=== PATIENT | female | born 1970 | race Caucasian/White ===

== ENCOUNTER 2020-11-04 10:16 | Outpatient (REF) | payer OTHER, SELFPAY ==
[2020-11-04 11:12] LABS: Alanine Aminotransferase 34 U/L (0-31); Anion Gap 12 (12-20); Blood Urea Nitrogen 10 mg/dL (9-16); Carbon Dioxide 26 mmol/L (22-29); Chloride 111 mmol/L (96-108); Cholesterol 183 mg/dL; Estimated Glomerular Filt Rate > 60; Glucose Fasting 89 mg/dL (60-99); HDL Cholesterol 73 mg/dL; LDL Cholesterol Calculated 93 mg/dl; Sodium 145 mmol/L (135-145); Triglycerides 87 mg/dL
== END 2020-11-04 10:17 | disposition home or self-care (01) ==
LOC: HO.LAB 10:16
PROVIDERS: PCP Family Medicine; Visit Provider Family Medicine
DX: E78.00 Pure hypercholesterolemia, unspecified (principal); I10 Essential (primary) hypertension
CPT/HCPCS: 80051; 80061; 82550; 82565; 82947; 84460; 84520

== ENCOUNTER 2021-02-06 06:45 | Outpatient (REF) | payer OTHER, SELFPAY ==
[2021-02-06 07:56] LABS: MANUAL DIFF FLAG NO
[2021-02-06 08:03] LABS: Basophils Absolute Auto 0.1 X10*3/uL (0.0-0.2); Basophils Percent Auto 0.9 % (0-2); Eosinophils Absolute Auto 0.2 X10*3/uL (0.0-0.4); Eosinophils Percent Auto 2.4 % (0-4); Hematocrit 37.3 % (37-47); Hemoglobin 12.2 g/dl (12.0-16.0); Imm Gran Abs Auto 0.03 X10*3/uL (0.00-0.03); Imm Gran Pct Auto 0.4 % (0.0-0.4); Lymphocytes Absolute Auto 2.7 X10*3/uL (1.2-4.9); Lymphocytes Percent Auto 36.5 % (20-40); Mean Corpuscular HGB Conc 32.7 g/dl (31.0-35.0); Mean Corpuscular Volume 100.8 fL (80-98); Mean Platelet Volume 10.7 fL (9.4-12.3); Monocytes Absolute Auto 0.4 X10*3/uL (0.1-1.2); Monocytes Percent Auto 5.5 % (2-11); Neutrophils Percent Auto 54.3 % (45-73); Platelet Count 268 X10*3/uL (160-400); Red Cell Distribution Width 12.3 % (11.0-16.0); White Blood Count 7.4 X10*3/uL (4.8-10.8)
[2021-02-06 08:30] LABS: Glucose Urine UA NEG (NEG); Leukocyte Esterase Urine 1+ (NEG); Nitrite Urine POS (NEG); Specific Gravity - Urine 1.025 (1.005-1.025); UACC Culture Trigger YES; Urine Blood 1+ (NEG); Urine Ketones NEG (NEG); Urine Protein NEG (NEG-TRACE)
[2021-02-06 08:33] LABS: Appearance Urine HAZY; Color Urine YELLOW
[2021-02-06 08:48] LABS: Bacteria Urine 2+ /LPF; Calcium Oxalate Crystals Urine TRACE /LPF; Squamous Epithelial Cell Urine 2+ /LPF
== END 2021-02-06 06:46 | disposition home or self-care (01) ==
LOC: HO.LAB 06:45
PROVIDERS: PCP Family Medicine; Visit Provider Family Medicine
DX: R39.15 Urgency of urination (principal); R10.9 Unspecified abdominal pain; R74.8 Abnormal levels of other serum enzymes
CPT/HCPCS: 36415; 81001; 81003; 82550; 85025; 87086

== ENCOUNTER 2021-02-20 15:15 | Outpatient (REF) | payer OTHER, SELFPAY ==
--- NOTE | ~2021-02-20 | US_ITS ---
EXAMINATION: US RETROPERITONEAL COMPLETE (RENAL) CLINICAL INFORMATION: Frequency. Unable to completely empty bladder. COMPARISON: Ultrasound abdomen complete 11/21/2017. TECHNIQUE: Real-time imaging of the kidneys and bladder. FINDINGS: RIGHT KIDNEY: 12.1 x 4.7 x 5.5 cm (SAG x AP x TRV). The kidney is normal in size, contour, and echogenicity. Renal cortical thickness is normal. No calculi or focal parenchymal lesions. No hydronephrosis. LEFT KIDNEY: 11.5 x 5.0 x 4.1 cm (SAG x AP x TRV). The kidney is normal in size, contour, and echogenicity. Renal cortical thickness is normal. No calculi or focal parenchymal lesions. No hydronephrosis. BLADDER: Well distended and normal. Bilateral ureteral jets are demonstrated. Prevoid bladder volume is 207 mL. Postvoid bladder volume is 8 mL. US/US retroperitoneal comp IMPRESSION: Unremarkable examination.
== END 2021-02-20 15:16 | disposition home or self-care (01) ==
LOC: HO.US 15:15
PROVIDERS: Visit Provider Family Medicine
DX: R33.9 Retention of urine, unspecified (principal)
CPT/HCPCS: 76770

== ENCOUNTER 2021-02-22 16:29 | Outpatient (REF) | payer OTHER, SELFPAY ==
[2021-02-22 17:24] LABS: MANUAL DIFF FLAG NO
[2021-02-22 17:33] LABS: Basophils Absolute Auto 0.1 X10*3/uL (0.0-0.2); Basophils Percent Auto 1.1 % (0-2); Eosinophils Absolute Auto 0.2 X10*3/uL (0.0-0.4); Eosinophils Percent Auto 2.2 % (0-4); Hematocrit 36.9 % (37-47); Hemoglobin 12.3 g/dl (12.0-16.0); Imm Gran Abs Auto 0.02 X10*3/uL (0.00-0.03); Imm Gran Pct Auto 0.3 % (0.0-0.4); Lymphocytes Absolute Auto 2.6 X10*3/uL (1.2-4.9); Lymphocytes Percent Auto 34.9 % (20-40); Mean Corpuscular HGB Conc 33.3 g/dl (31.0-35.0); Mean Corpuscular Hemoglobin 33.3 pg (27.0-33.0); Mean Platelet Volume 10.9 fL (9.4-12.3); Monocytes Absolute Auto 0.5 X10*3/uL (0.1-1.2); Monocytes Percent Auto 6.2 % (2-11); Neutrophils Absolute Auto 4.1 X10*3/uL (2.0-8.3); Neutrophils Percent Auto 55.3 % (45-73); Platelet Count 286 X10*3/uL (160-400); Red Blood Count 3.69 X10*6/uL (4.20-5.50); Red Cell Distribution Width 12.3 % (11.0-16.0); White Blood Count 7.4 X10*3/uL (4.8-10.8)
[2021-02-22 18:03] LABS: Alanine Aminotransferase 29 U/L (0-31); Albumin Level 4.5 g/dL (3.5-5.0); Alkaline Phosphatase 94 U/L (39-117); Anion Gap 12 (12-20); Aspartate Amino Transferase 22 U/L (5-31); Bilirubin Total 0.4 mg/dL (0.0-1.0); Blood Urea Nitrogen 12 mg/dL (9-16); Calcium 8.8 mg/dL (8.4-10.2); Carbon Dioxide 26 mmol/L (22-29); Chloride 111 mmol/L (96-108); Estimated Glomerular Filt Rate > 60; Glucose Random 89 mg/dL (60-115); Potassium 4.1 mmol/L (3.3-5.1); Sodium 145 mmol/L (135-145); Total Protein 7.2 g/dL (6.5-8.0)
[2021-02-22 18:25] LABS: Free T4 (Free Thyroxine) 0.77 ng/dL (0.71-1.85); Thyroid Stimulating Hormone 2.22 uIU/mL (0.32-4.0)
== END 2021-02-22 16:30 | disposition home or self-care (01) ==
LOC: HO.LAB 16:29
PROVIDERS: PCP Family Medicine; Visit Provider Family Medicine
DX: R53.83 Other fatigue (principal); K21.9 Gastro-esophageal reflux disease without esophagitis; G62.9 Polyneuropathy, unspecified
CPT/HCPCS: 36415; 80053; 82550; 84439; 84443; 85025

== ENCOUNTER 2021-06-14 05:56 | Outpatient (REF) | payer OTHER, SELFPAY ==
[2021-06-14 09:20] LABS: Glucose 1 Hour PP 50gm Dose 90 mg/dL (60-140)
== END 2021-06-14 05:57 | disposition home or self-care (01) ==
LOC: HO.LAB 05:56
PROVIDERS: PCP Family Medicine; Visit Provider Family Medicine
DX: E16.2 Hypoglycemia, unspecified (principal)
CPT/HCPCS: 36415

== ENCOUNTER 2021-07-25 08:00 | Outpatient (REF) | payer OTHER, SELFPAY ==
[2021-07-25 08:42] LABS: MANUAL DIFF FLAG NO
[2021-07-25 08:47] LABS: Basophils Absolute Auto 0.1 X10*3/uL (0.0-0.2); Basophils Percent Auto 0.9 % (0-2); Eosinophils Absolute Auto 0.2 X10*3/uL (0.0-0.4); Eosinophils Percent Auto 2.6 % (0-4); Hematocrit 37.1 % (37-47); Hemoglobin 12.4 g/dl (12.0-16.0); Imm Gran Abs Auto 0.03 X10*3/uL (0.00-0.03); Imm Gran Pct Auto 0.4 % (0.0-0.4); Lymphocytes Absolute Auto 2.1 X10*3/uL (1.2-4.9); Lymphocytes Percent Auto 30.7 % (20-40); Mean Corpuscular HGB Conc 33.4 g/dl (31.0-35.0); Mean Corpuscular Hemoglobin 33.3 pg (27.0-33.0); Mean Corpuscular Volume 99.7 fL (80-98); Mean Platelet Volume 10.7 fL (9.4-12.3); Monocytes Absolute Auto 0.4 X10*3/uL (0.1-1.2); Monocytes Percent Auto 5.6 % (2-11); Neutrophils Absolute Auto 4.1 X10*3/uL (2.0-8.3); Neutrophils Percent Auto 59.8 % (45-73); Platelet Count 270 X10*3/uL (160-400); Red Blood Count 3.72 X10*6/uL (4.20-5.50); Red Cell Distribution Width 12.3 % (11.0-16.0); White Blood Count 6.9 X10*3/uL (4.8-10.8)
[2021-07-25 09:05] LABS: Alanine Aminotransferase 27 U/L (0-31); Albumin Level 4.4 g/dL (3.5-5.0); Alkaline Phosphatase 98 U/L (39-117); Anion Gap 11 (12-20); Aspartate Amino Transferase 21 U/L (5-31); Bilirubin Total 0.6 mg/dL (0.0-1.0); Blood Urea Nitrogen 9 mg/dL (9-16); Calcium 9.4 mg/dL (8.4-10.2); Carbon Dioxide 25 mmol/L (22-29); Chloride 112 mmol/L (96-108); Estimated Glomerular Filt Rate > 60; Glucose Random 94 mg/dL (60-115); Potassium 4.3 mmol/L (3.3-5.1); Sodium 144 mmol/L (135-145)
[2021-07-25 09:26] LABS: Thyroid Stimulating Hormone 2.49 uIU/mL (0.32-4.0)
[2021-07-25 10:19] LABS: Erythrocyte Sedimentation Rate 13 MM/HR (0-20)
[2021-07-26 09:41] LABS: Lyme Abs Screen <0.90 index
[2021-08-01 21:42] LABS: Anti Nuclear Antibody Screen NEGATIVE (NEGATIVE)
== END 2021-07-25 08:01 | disposition home or self-care (01) ==
LOC: HO.LAB 08:00
PROVIDERS: PCP Family Medicine; Visit Provider Family Medicine
DX: R53.83 Other fatigue (principal); R53.1 Weakness; R25.1 Tremor, unspecified
CPT/HCPCS: 36415; 80053; 82550; 84443; 85025; 85652; 86038; 86039; 86617; 86618

== ENCOUNTER 2022-08-01 08:25 | Outpatient (REF) | payer OTHER, SELFPAY ==
[2022-08-01 09:05] LABS: Estimated Average Glucose 94 mg/dL; Hemoglobin A1c % 4.9 %
[2022-08-01 09:41] LABS: Glucose Fasting 100 mg/dL (60-99)
== END 2022-08-01 08:26 | disposition home or self-care (01) ==
LOC: HO.LAB 08:25
PROVIDERS: PCP Family Medicine; Visit Provider Family Medicine
DX: Z83.3 Family history of diabetes mellitus (principal)
CPT/HCPCS: 36415; 82947; 83036

== ENCOUNTER 2025-05-30 11:17 | Outpatient (AMB) | payer OTHER, SELFPAY ==
--- NOTE | 2025-05-30 11:20 | A.OFFPC_ITS ---
Vital Signs 05/30/25 11:39 05/30/25 11:45 Height 5 ft 7.72 in Weight 219 lb 6 oz BMI 33.6 BP 136/104 H 128/86 Blood Pressure Location Rt brachial Rt brachial Position Sitting Sitting Respiration 14 Pulse 91 Pulse Source Pulse Oximeter Temp 98.7 F Temp Source Oral Pulse Oximetry (%) 96 Oxygen Delivery Method Room Air Intake Visit Reasons: est care Intake Note: New patient visit Brake Liner Required: No Allergies Sulfa (Sulfonamide Antibiotics) (SULFA (SULFONAMIDE ANTIBIOTICS)) Allergy (Unknown, Verified 05/30/25 11:21) HIVES,NAUSEA,VOMITING Pt states no food allergies Allergy (Severe, Uncoded 05/30/25 11:32) Rash Sulfa Allergy (Unknown, Uncoded 05/30/25 11:21) Unknown Tobacco use date assessed: 05/30/25 Dental Screening Dental Screen Date: 05/30/25 Did you have a dental visit in the last 12 months?: Yes Did you have a dental problem in the last 6 months where you did not have access to dental care?: No Was dental information given to patient?: Patient has dentist HPI HPI Comments History of Present Illness Details 54 year old female with a past medical h istory of ADD, insomnia, depression, fibromyalgia, NAFLD, colon polyp, JERRY, IBS, obesity s/p gastric sleeve presenting to establish care BH: On trazodone, adderall XR. Follows with Alessandra Lugo. GI: Follows with Dr Beasley for NAFLD. History of diverticulosis, has had an episode of diverticulitis. MSK: Has seen arthritis treatment center in the past. Shattered clavicle ~2 years ago. Back in PT for vertigo. Long haul COVID-left work in June 2021 because was unable to maintain work. 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 She has done PT/speech. Following with Dr Aponte, [place] Status total hysterectomy. Mammo: 05/2024 Colonoscopy 09/2024-[address] Beasley ROS see HPI PHYSICAL EXAM: GENERAL: Alert and oriented x 3. NAD EYES: EOMI. Anicteric. HENT: Moist mucous membranes. No scleral icterus. No cervical lymphadenopathy. LUNGS: Clear to auscultation bilaterally. CARDIOVASCULAR: Regular rate and rhythm. No murmur. No JVD. ABDOMEN: Soft, non-tender +bs EXTREMITIES: No edema. Non-tender. SKIN: No rashes or lesions. Warm. NEUROLOGIC: No focal neurological deficits. CN II-XII grossly intact PSYCHIATRIC: Cooperative. 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 1. Little interest or pleasure in doing things: several days 2. Feeling down, depressed, or hopeless: several days 3. Trouble falling or staying asleep, or sleeping too much: more than half the days 4. Feeling tired or having little energy: several days 5. Poor appetite or overeating: several days 6. Feeling bad about yourself - or that you are a failure or have let yourself or your family down: not at all 7. Trouble concentrating on things, such as reading the newspaper or watching television: more than half the days 8. Moving or speaking so slowly that other people could have noticed. Or the opposite - being so fidgety or restless that you have been moving around a lot more than usual: several days 9. Thoughts that you would be better off or of hurting yourself in some way: not at all Total score: 9 Source: Developed by Drs. Leonel Watson, Xena Diaz, Jeovany Harley and colleagues, with an educational magdy from [employer]. Thrive Questionnaire Date Thrive assessed: 05/27/25 I am a: Patient What is your living situation today?: I have a steady place to live Within the past 12 months, did the food you bought not last and you didn't have the money to get more?: Never true Within the past 12 months, did you worry whether your food would run out before you got money to buy more?: Never true Do you have trouble paying for medicines?: No Do you have trouble getting transportation to medical appointments?: No Do you have trouble paying your heating and electricity bill?: No Do you have trouble taking care of your child, family member or friend?: No Do you have trouble with day-to-day activities such as bathing, preparing meals, shopping, managing finances, etc.?: Yes Are you currently unemployed and looking for a job?: I choose not to answer this question Are you interested in more education?: No Please select the resources that you would like help with: None Currently or been in a relationship where the following occur: No concerns reported THRIVE Score: 0 AUDIT C Alcohol Use Questionnaire (AUDIT-C) 1. How often do you have a drink containing alcohol?: 2-4 times a month 2. How many drinks containing alcohol do you have on a typical day when you are drinking?: 3 or 4 3. How often do you have six or more drinks on one occasion?: Never Total Score: 3 NIKITA-7 AMB Questionnaire NIKITA-7 Feeling nervous, anxious, or on edge: 1 = Several days Not being able to stop or control worryin = Several days Worrying too much about different things: 1 = Several days Trouble relaxin = More than half the days Being so restless that it is hard to sit still: 0 = Not at all Becoming easily annoyed or irritable: 2 = More than half the days Feeling afraid as if something awful might happen: 0 = Not at all Total NIKITA-7 score (0-4 normal; 5-9 mild; 10-14 moderate; 15-21 severe): 7 Source: Developed by Drs. Leonel Watson, Xena Diaz, Jeovany Harley and colleagues, with an educational magdy from [employer]. Physical exam (Primary Care) Vital Signs: Last Vital Signs Temp 98.7 F 05/30/25 11:39 Pulse 91 05/30/25 11:39 Resp 14 05/30/25 11:39 BP 128/86 05/30/25 11:45 Pulse Ox 96 05/30/25 11:39 Oxygen Delivery Method Room Air 05/30/25 11:39 BMI result Body Mass Index 33.6 Tobacco/Smoking Status: Tobacco use Status Tobacco use date assessed 05/30/25 05/30/25 11:28 Patient Tobacco Use Status Never used Tobacco 05/30/25 11:28 e-Cigarette/Vaping Use Never Used 05/30/25 11:28 PHQ-9: PHQ-9 Score PHQ-9: Total score 9 05/30/25 11:43 Thrive Assessment: Date of Thrive Assessment Date Thrive assessed 05/27/25 05/30/25 11:28 Currently or been in a relationship where the following occur: No concerns reported Coding Level of Care Code New Pt Level 4 (42382) Complex EM visit Add On G2211 Diagnoses COVID-19 angelo wren U09.9 NAFLD (nonalcoholic fatty liver disease) K76.0 JERRY (obstructive sleep apnea) G47.33 Assessment & Plan Assessment & Plan (1) COVID-19 angelo payneuler: Code(s): U09.9 - Post COVID-19 condition, unspecified Category: Medical (2) NAFLD (nonalcoholic fatty liver disease): Code(s): K76.0 - Fatty (change of) liver, not elsewhere classified Category: Medical (3) JERRY (obstructive sleep apnea): Code(s): G47.33 - Obstructive sleep apnea (adult) (pediatric) Category: Medical Plan 54 year old to establish care Past medical, surgical, social reviewed JERRY-zepbound ordered Angelo sears covid-continue follow up with specialist Orders: Orders Complete Blood Count Auto Diff Today K76.0 - Fatty (change of) liver, not elsewhere classified, Z13.0 - Encounter for screening for diseases of the blood and blood-forming organs and certain disorders involving the immune mechanism, Z13.220 - Encounter for screening for lipoid disorders, Z13.228 - Encounter for screening for other metabolic disorders Comprehensive Met. Panel Today K76.0 - Fatty (change of) liver, not elsewhere classified, Z13.0 - Encounter for screening for diseases of the blood and blood- forming organs and certain disorders involving the immune mechanism, Z13.220 - Encounter for screening for lipoid disorders, Z13.228 - Encounter for screening for other metabolic disorders TSH reflex Free T4 Today K76.0 - Fatty (change of) liver, not elsewhere classified, Z13.0 - Encounter for screening for diseases of the blood and blood- forming organs and certain disorders involving the immune mechanism, Z13.220 - Encounter for screening for lipoid disorders, Z13.228 - Encounter for screening for other metabolic disorders Hemoglobin A1c Today K76.0 - Fatty (change of) liver, not elsewhere classified, Z13.0 - Encounter for screening for diseases of the blood and blood-forming organs and certain disorders involving the immune mechanism, Z13.220 - Encounter for screening for lipoid disorders, Z13.228 - Encounter for screening for other metabolic disorders Medications: New Zepbound (tirzepatide (weight loss)) for 4 weeks 2.5 mg (0.5 mL) subcut QWEEK 2 mL 3RF NS G47.33 - Obstructive sleep apnea (adult) (pediatric), K76.0 - Fatty (change of) liver, not elsewhere classified omeprazole 40 mg PO BID 180 caps 3RF
[2025-05-30 11:39] VITALS: BP 136/104; PULSE 91; RESP 14; TEMP 37.1; O2SAT 96; BMI 33.6
[2025-05-30 11:45] VITALS: BP 128/86
== END 2025-05-30 12:21 | disposition home or self-care (01) ==
LOC: HO.HMCFM 11:17
PROVIDERS: PCP Internal Medicine; Visit Provider Internal Medicine
DX: U09.9 Post COVID-19 condition, unspecified (principal); K76.0 Fatty (change of) liver, not elsewhere classified; G47.33 Obstructive sleep apnea (adult) (pediatric)

== ENCOUNTER 2025-06-17 07:05 | Outpatient (REF) | payer OTHER, SELFPAY ==
--- OUTSIDE RECORDS SUMMARY | 2025-06-17 07:07 | XMS_ITS | Encounter Summary ---
Author Organization [facility] Address [address] [place] [address] Care Team Providers Care Machining Department Supervisor Name Role Phone José Miguel Stevens MD Primary Care Provider [phone] Reason for Visit * Reason Onset Date Comments Results 06/03/2025 Encounter Details Date Type Department Care Team ([facility] st Contact Info) Description 06/03/2025 Telephone Gastroenterology - [address] [address] [phone] Claus Beasley MD [address] [address] Results Social History Tobacco Use Types Packs/Day Years Used Date Smoking Tobacco: Never Alcohol Use Standard Drinks/Week Comments Yes 0 (1 standard drink = 0.6 oz pur e alcohol) social Interpersonal Safety Answer Date Record ed Physical Abuse 10/04/2024 Verbal Abuse 10/04/2024 Comments No Sex and Gender Information Value Date Recorded Sex Assigned at Female 09/15/2024 9:40 AM EDT Legal Sex Female 3:12 PM EST Gender Identity Female 09/15/2024 9:40 AM EDT Sexual Orientation Straight 09/15/2024 9: 40 AM EDT documented as of this encounter Progress Notes * Radha Trinh - 06/03/2025 10:10 AM EDT Called pt with below message, no answer lvm * Radha Trinh - 06/03/2025 10:09 AM EDT ----- Message from Jeremías Beasley MD sent at 06/02/2025 4:44 PM EDT ----- Call pt: elastography is good, no scarring. Just fatty liver. documented in this encounter Plan of Treatment Upcoming Encounters Date Type Department Care Team (Late st Contact Info) Description 08/09/2025 9:00 AM EDT Office Visit Gastroenterology - [address] [phone] Claus Beasley MD [address] [phone] documented as of this encounter Visit Diagnoses Not on filedocumented in this encounter Care Teams Machining Department Supervisor Relationship Specialty Start Date End Date José Miguel Stevens MD [address] [place] [address] [place] [address] PCP - General Internal Medicine 04/14/17 documented as of this encounter
--- OUTSIDE RECORDS SUMMARY | 2025-06-17 07:07 | XMS_ITS | Encounter Summary ---
Author Organization [facility] Address [address] [place] [phone] Phone Care Team Providers Care Certified Composites Technician Name Role Phone José Miguel Stevens MD Primary Care Provider [phone] Roseline Galarza MD Primary Care Provider Encounter Details Date Type Department Care Team (Late st Contact Info) Description 03/01/2024 Procedure Pass [facility] [address] [place] [address] Social History Tobacco Use Types Packs/Day Years Used Date Smoking Tobacco: Never Smokeless Tobacco: Never Alcohol Use Standard Drinks/Week Comments Yes 3 (1 standard drink = 0.6 oz pur e alcohol) Education Answer Date Recorded Are you interested in more education? Not on [place] e 03/22/2023 Are you concerned about learning? Not on file 03/22/2023 No 03/22/2023 No 03/22/2023 Digital Access Answer Date Recorded No 04/22/2023 No 04/22/2023 Reliable internet access at home? Not on file 04/22/2023 Device with a working camera? Not on file Intimate Partner Violence Answer Date R ecorded Are you denied basic needs s uch as food, clothing, or medical care? Deferred 03/01/2024 In the past 12 months have y ou been in a relationship with a person who hurts, threatens, or tries to control you? Deferred 03/01/2024 Are you denied basic needs s uch as food, clothing, or medical care? Deferred 03/01/2024 In the past 12 months have y ou been in a relationship with a person who hurts, threatens, or tries to control you? Deferred 03/01/2024 Comments No Sex and Gender Information Value Date Recorded Sex Assigned at Female 06/03/2023 1:41 PM EDT Legal Sex Female 11:33 AM EDT Gender Identity Female 06/03/2023 1:41 PM EDT Sexual Orientation Straight 06/03/2023 1: 41 PM EDT documented as of this encounter Plan of Treatment Upcoming Encounters Date Type Department Care Team (Late st Contact Info) Description 06/20/2025 10:00 AM EDT Office Visit [facility] [address] [place] [address] Joseline Cartagena NP [address] [place] [address] Elza Nava CCC-RETAIL WIRELESS SALES REPRESENTATIVE [address] [place] [phone] 06/27/2025 10:00 AM EDT Office Visit [facility] [address] [place] [address] Joseline Cartagena NP [address] [place] [phone] Elza Nava CCC-SLP [address] [place] [phone] 07/04/2025 10:00 AM EDT Office Visit [facility] [address] [place] [address] Joseline Cartagena NP [address] [place] [address] Elza Nava CCC-SLP [address] [place] [phone] 07/11/2025 10:00 AM EDT Office Visit [facility] [address] [place] [address] Joseline Cartagena, HOTEL SERVICES SUPERVISOR [address] [place] [phone] Elza Nava [address] [address] 07/18/2025 10:00 AM EDT Office Visit [facility] [address] [place] [address] Joseline Cartagena, HOTEL SERVICES SUPERVISOR [address] [place] [phone] Elza Nava [address] [address] 08/01/2025 10:00 AM EDT Office Visit [facility] [address] [place] [address] Joseline Cartagena, HOTEL SERVICES SUPERVISOR [address] [place] [address] Elza Nava [address] [address] documented as of this encounter Visit Diagnoses Not on filedocumented in this encounter Care Teams Certified Composites Technician Relationship Specialty Start Date End Date José Miguel Stevens MD [address] [place] [address] [place] [address] PCP - General Internal Medicine 06/21/22 05/22/25 Roseline Galarza MD [address] [place] [address] [place] [address] PCP - General Internal Medicine 05/23/25 documented as of this encounter Additional Source Comments The information contained in this document represents components of the legal health record. It is not the complete legal health record.[facility]
[2025-06-17 07:18] LABS: MANUAL DIFF FLAG NO
[2025-06-17 07:55] LABS: Hematocrit 40.8 % (37.0-47.0); Hemoglobin 14.0 g/dl (12.0-16.0); Imm Gran Abs Auto 0.03 X10*3/uL (0.00-0.03); Imm Gran Pct Auto 0.3 % (0.0-0.4); Lymphocytes Absolute Auto 2.2 X10*3/uL (1.2-4.9); Mean Corpuscular HGB Conc 34.3 g/dl (31.0-35.0); Mean Corpuscular Hemoglobin 34.3 pg (27.0-33.0); Mean Corpuscular Volume 100.0 fL (80.0-98.0); NRBC Abs Auto 0.000 X10*3/uL (0.0-0.012); NRBC Pct Auto 0.0 /100WBC (0.0-0.2); Platelet Count 270 X10*3/uL (160-400); Red Blood Count 4.08 X10*6/uL (4.20-5.50); White Blood Count 8.7 X10*3/uL (4.8-10.8)
[2025-06-17 08:02] LABS: Hemoglobin A1C 111.4661 umol/L; Total Hemoglobin (HGBA1C) 3686.9878 umol/L
[2025-06-17 08:32] LABS: Alanine Aminotransferase 67 U/L (0-31); Albumin Level 4.7 g/dL (3.5-5.0); Alkaline Phosphatase 102 U/L (39-117); Anion Gap 15 (12-20); Aspartate Amino Transferase 50 U/L (5-31); Blood Urea Nitrogen 11 mg/dL (9-16); Calcium 8.9 mg/dL (8.4-10.2); Carbon Dioxide 26 mmol/L (22-29); Chloride 107 mmol/L (96-108); Cholesterol 351 mg/dL (<200); Estimated Glomerular Filt Rate 58; HDL Cholesterol 49 mg/dL (>40); Potassium 4.6 mmol/L (3.3-5.1); Sodium 143 mmol/L (135-145); Total Protein 7.3 g/dL (6.5-8.0); Triglycerides 447 mg/dL (<150)
[2025-06-17 09:22] LABS: Free T4 (Free Thyroxine) 0.83 ng/dL (0.71-1.85)
== END 2025-06-17 07:06 | disposition home or self-care (01) ==
LOC: HO.LAB 07:05
PROVIDERS: PCP Internal Medicine; Visit Provider Internal Medicine
DX: Z13.220 Encounter for screening for lipoid disorders (principal); Z13.0 Encounter for screening for diseases of the blood and blood-forming organs and certain disorders involving the immune mechanism; Z13.228 Encounter for screening for other metabolic disorders; K76.0 Fatty (change of) liver, not elsewhere classified; E78.5 Hyperlipidemia, unspecified
CPT/HCPCS: 36415; 80053; 80061; 83036; 84439; 84443; 85025

== ENCOUNTER 2025-09-07 13:35 | Outpatient (AMB) | payer OTHER, SELFPAY ==
--- NOTE | 2025-09-07 13:39 | AM.OFFWIN_ITS ---
Intake Vital Signs 09/07/25 13:43 Height 5 ft 7.72 in Weight 219 lb 4 oz BMI 33.6 BP 158/90 H Blood Pressure Location Lt brachial Position Sitting Respiration 14 Pulse 103 H Pulse Source Pulse Oximeter Temp 99.0 F Temp Source Oral Pulse Oximetry (%) 96 Oxygen Delivery Method Room Air Intake Visit Reasons: Diverticulitis Intake Note: Patient c/o diverticulitis flare, pain and cramping since Sep 01. Patient Tobacco Use Status: Never used Tobacco Product Specialist Required: No Allergies Sulfa (Sulfonamide Antibiotics) (SULFA (SULFONAMIDE ANTIBIOTICS)) Allergy (Unknown, Verified 09/07/25 13:40) HIVES,NAUSEA,VOMITING Pt states no food allergies Allergy (Severe, Uncoded 09/07/25 13:40) Rash Sulfa Allergy (Unknown, Uncoded 09/07/25 13:40) Unknown Do you need a note to return to daycare/school/sports/work: No PFSH Family History Daughter Depression Other FH: mental illness Social History Housing: House Patient Tobacco Use Status: Never used Tobacco e-Cigarette/Vaping Use: Never Used Second Hand Smoke Exposure: No service: No 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
[2025-09-07 13:43] VITALS: BP 158/90; PULSE 103; RESP 14; TEMP 37.2; O2SAT 96; BMI 33.6
--- NOTE | 2025-09-07 14:27 | A.OFFPC_ITS ---
Vital Signs 09/07/25 13:43 09/07/25 14:34 Height 5 ft 7.72 in Weight 219 lb 4 oz BMI 33.6 BP 158/90 H 160/80 H Blood Pressure Location Lt brachial Lt brachial Position Sitting Sitting Respiration 14 Pulse 103 H 100 Pulse Source Pulse Oximeter Auscultation Temp 99.0 F Temp Source Oral Pulse Oximetry (%) 96 Oxygen Delivery Method Room Air Intake Visit Reasons: Diverticulitis Allergies Sulfa (Sulfonamide Antibiotics) (SULFA (SULFONAMIDE ANTIBIOTICS)) Allergy (Unknown, Verified 09/07/25 14:26) HIVES,NAUSEA,VOMITING Pt states no food allergies Allergy (Severe, Uncoded 09/07/25 13:40) Rash Sulfa Allergy (Unknown, Uncoded 09/07/25 13:40) Unknown Medication List - Last Reconciled 09/07/25 by MONIE Aldana- acyclovir mg PO albuterol sulfate 90 mcg/actuation (Ventolin HFA) 2 puffs inhalation Q6H PRN budesonide-formoterol 160-4.5 mcg/actuation (Symbicort) 2 puffs inhalation BID bupropion HCl XL 300 mg PO QAM cyclobenzaprine 5 mg PO BEDTIME PRN dextroamphetamine-amphetamine 25 mg ER (Adderall XR) 25 mg PO DAILY omeprazole 40 mg PO BID trazodone 200 mg PO BEDTIME PRN Wegovy (semaglutide (weight loss)) 0.25 mg (0.5 mL) subcut QWEEK NS Tobacco use date assessed: 05/30/25 Dental Screening Dental Screen Date: 05/30/25 HPI HPI Comments History of Present Illness Details 55 year old female with a past medical h istory of ADD, insomnia, depression, fibromyalgia, NAFLD, colon polyp, JERRY, IBS, obesity s/p gastric sleeve History of Present Illness The patient is a 55 year old female presenting with abdominal pain and symptoms suggestive of diverticulitis. Diverticulitis: - Pain began on September 01, starting in left abdomen. - Progressed to crampy, lower abdominal pain. - History of diverticulitis January 13 with ER treatment. - Worsening pain despite acetaminophen a nd liquid diet. - Low-grade fever and chills reported, n o vomiting. - No diarrhea or bloody stools, patient on liquid diet. Hypertension: - Elevated blood pressure measured today . Review of Systems - Constitutional: Reports mild fever (99 ?F), variable chills. - Gastrointestinal: Reports left-sided a bdominal pain, crampy lower abdominal pain. Denies constipation, diarrhea, or blood in stools. Reports nausea without vomiting.Normal urination Normal bowel movements w/o blood - Genitourinary: Denies urinary issues. - Cardiovascular: Recent high blood pres sure. - Respiratory: Denies associated breathi ng or respiratory issues noted in the conversation. Physical Exam General: Well developed, well nourished, in no acute distress. Appears stated age. Nontoxic Head: Normocephalic, atraumatic. Eyes: Pupils are equal, round and reactive to light and accommodation. Scleras nonicteric MMM Lungs: Clear to auscultation bilaterally. No rales, rhonchi or wheeze noted. Good air flow in all amaro. Heart: Mild tachycardia, Regular rhythm. No murmurs, click, rubs or gallops are noted. Abdomen: Normoactive bs x 4, tender w/ rebound over LUQ and LLQ. No rigidity. Negative jump sign. No CVAT. Feels more comfortable in the position. Musculoskeletal: Joints are nontender, without swelling, redness, or effusions. Pulses: Peripheral pulses are equal and palpable bilaterally. Extremities: No clubbing, cyanosis nor edema is noted. Psych: Mood and affect appropriate. Discussion Notes I discussed with the patient that her symptoms are likely consistent with another diverticulitis episode. We reviewed management options, emphasizing outpatient treatment with antibiotics. I recommended maintaining a clear liquid diet for now, with the exception of allowed lactose-free protein shakes to ensure adequate nutrition without exacerbating symptoms. Additionally, I advised on the risks of complications such as abscess or rupture, which would necessitate urgent care. We discussed the antibiotics, amoxicillin/clavulanic acid, including the need to manage potential stomach upset with liquid diet compliance. I instructed her to seek immediate care if symptoms worsen, including vomiting, higher fever, or inability to tolerate oral medications. A follow-up visit is encouraged within a week to reassess blood pressure and abdominal symptoms. The patient understands and agrees with the plan. Patient was given time to ask questions. All questions were answered to their satisfaction. Assessment and Plan 1. Diverticulitis/Acute abd: - Amoxicillin/clavulanic acid prescribed , clear liquid diet recommended. - Follow-up in a week; seek emergency ca re for worsening symptoms. 2. Hypertension - Monitor blood pressure, follow-up visi t for reassessment. - Likely pain related. Patient Instructions - Continue taking the prescribed amoxici llin/clavulanic acid as directed. - Stick to a clear liquid diet and inclu de lactose-free protein shakes. - Watch for worsening symptoms, like sev ere belly pain, vomiting, or high fever, and seek medical care immediately. - Schedule a follow-up visit next week f or blood pressure and belly pain reassessment. - Continue submitting health updates thr ough the patient portal if needed. Consent The patient consented to the management plan for diverticulitis, which includes antibiotic treatment with amoxicillin/clavulanic acid and maintaining a clear liquid diet. I discussed the potential risks of an abscess or colon rupture requiring further intervention. The patient is aware of these risks and understands the importance of seeking immediate care if her condition worsens. Consent was obtained verbally during the consultation, and the patient has been encouraged to contact us with any questions or concerns. Patient was informed and verbally consented to the use of an ambient scribe for clinic note documentation during this visit. Total time spent caring for the patient today was 30 minutes. This includes time spent before the visit reviewing the chart, time spent during the visit, and time spent after the visit on documentation, reviewing laboratory results, diagnostic imaging, medications, performing a medically necessary evaluation, counseling on diagnoses, care coordination, ordering appropriate tests, ordering appropriate medications, review of tests performed by other providers, reporting test results with the patient, communication with other healthcare providers. PFSH Family History Daughter Depression Other FH: mental illness Social History Housing: House Patient Tobacco Use Status: Never used Tobacco e-Cigarette/Vaping Use: Never Used Second Hand Smoke Exposure: No service: No Current occupational status: disabled (prison) Cognitive needs: Yes (trouble remembering) Hearing needs: Yes (bilateral hearing aid) Vision needs: Yes (glasses) Questionnaire Thrive Questionnaire Date Thrive assessed: 05/27/25 I am a: Patient What is your living situation today?: I have a steady place to live Within the past 12 months, did the food you bought not last and you didn't have the money to get more?: Never true Within the past 12 months, did you worry whether your food would run out before you got money to buy more?: Never true Do you have trouble paying for medicines?: No Do you have trouble getting transportation to medical appointments?: No Do you have trouble paying your heating and electricity bill?: No Do you have trouble taking care of your child, family member or friend?: No Do you have trouble with day-to-day activities such as bathing, preparing meals, shopping, managing finances, etc.?: Yes Are you currently unemployed and looking for a job?: I choose not to answer this question Are you interested in more education?: No Please select the resources that you would like help with: None Currently or been in a relationship where the following occur: No concerns reported THRIVE Score: 0 Physical exam (Primary Care) Vital Signs: Last Vital Signs Temp 99.0 F 09/07/25 13:43 Pulse 100 09/07/25 14:34 Resp 14 09/07/25 13:43 BP 160/80 H 09/07/25 14:34 Pulse Ox 96 09/07/25 13:43 Oxygen Delivery Method Room Air 09/07/25 13:43 BMI result Body Mass Index 33.6 Tobacco/Smoking Status: Tobacco use Status Tobacco use date assessed 05/30/25 09/07/25 14:31 Patient Tobacco Use Status Never used Tobacco 09/07/25 14:31 e-Cigarette/Vaping Use Never Used 09/07/25 14:31 Thrive Assessment: Date of Thrive Assessment Date Thrive assessed 05/27/25 09/07/25 14:31 Currently or been in a relationship where the following occur: No concerns reported Coding Level of Care Code Est Pt Level 4 (99074) Complex EM visit Add On G2211 Diagnoses Elevated blood pressure reading without diagnosis of hypertension R03.0 Diverticulitis K57.92 Abdominal pain of multiple sites R10.85 Abdominal location: multiple sites Assessment & Plan Assessment & Plan (1) Elevated blood pressure reading without diagnosis of hypertension: Code(s): R03.0 - Elevated blood-pressure reading, without diagnosis of hypertension Category: Medical (2) Diverticulitis: Code(s): K57.92 - Diverticulitis of intestine, part unspecified, without perforation or abscess without bleeding Category: Medical (3) Abdominal pain: Code(s): R10.9 - Unspecified abdominal pain Category: Medical Qualifiers: Abdominal location: multiple sites Qualified Code(s): R10.85 - Abdominal pain of multiple sites Plan . Medications: New amoxicillin-pot clavulanate 875-125 mg 1 tab PO Q12H 20 tabs 0RF 10 days
[2025-09-07 14:34] VITALS: BP 160/80; PULSE 100
--- OUTSIDE RECORDS SUMMARY | 2025-09-07 17:23 | XMS_ITS | Encounter Summary ---
Author Organization [facility] Address [address] [facility] [address] [place] [address] Phone Care Team Providers Care Dog And Cat Food Cook Name Role Phone José Miguel Stevens MD Primary Care Provider Roseline Galarza MD Primary Care Provider [phone] Encounter Details Date Type Department Care Team (Late st Contact Info) Description 07/24/2023 [facility] Per[facility] [address] [place] [address] Social History Tobacco Use Types Packs/Day Years Used Date Smoking Tobacco: Never Smokeless Tobacco: Never Alcohol Use Standard Drinks/Week Comments Yes 14 (1 standard drink = 0.6 oz pu re alcohol) Education Answer Date Recorded Are you interested in more education? Not on [place] e 03/22/2023 Are you concerned about learning? Not on file 03/22/2023 No 03/22/2023 No 03/22/2023 Digital Access Answer Date Recorded No 04/22/2023 No 04/22/2023 Reliable internet access at home? Not on file 04/22/2023 Device with a working camera? Not on file Comments No Sex and Gender Information Value Date Recorded Sex Assigned at Female 06/03/2023 1:41 PM EDT Legal Sex Female 11:33 AM EDT Gender Identity Female 06/03/2023 1:41 PM EDT Sexual Orientation Straight 06/03/2023 1: 41 PM EDT documented as of this encounter Plan of Treatment Not on file documented as of this encounter Visit Diagnoses Not on filedocumented in this encounter Care Teams Dog And Cat Food Cook Relationship Specialty Start Date End Date José Miguel Stevens MD [address] [place] [address] Dr [address] [place] [address] PCP - General Internal Medicine 06/21/22 05/22/25 Roseline Galarza MD [address] [place] [address] Dr LAGOS [address] [place] [address] PCP - General Internal Medicine 05/23/25 documented as of this encounter Additional Source Comments The information contained in this document represents components of the legal health record. It is not the complete legal health record.[facility]
--- OUTSIDE RECORDS SUMMARY | 2025-09-07 17:23 | XMS_ITS | Clinical Summary ---
Author Organization [facility] Address [address] [facility] [address] [address] Phone Care Team Providers Care Sas Programmer Name Role Phone Roseline Galarza MD Primary Care Provider Allergies Active Allergy Reactions Criticality Noted Date Comments Oxycodone Dizziness,Mental Status Change 07/10/2023 Sulfa (Sulfonamide Antibiotics) Diarrhea,Hives,Wheezi ng 07/10/2023 Other reaction(s): rash & vomiting Medications coenzyme V00-ftrm lip ac-vit E 30-50-100 mg-mg-unit Cap Take 100 mg by mouth. 2 Active multivitamin per tablet 0 Refills, Maintenance, 11/08/22 13:24:00 EST, Partial fill upon patient request if the prescription is for a schedule II opioid drug. 2 Active atorvastatin (LIPITOR) 20 MG tablet Take 20 mg by mouth. 2 Active buPROPion (WELLBUTRIN XL) 300 MG ER 24 hr tablet Take 300 mg by mouth. 2 Active cetirizine (ZYRTEC) 10 MG tablet Take 10 mg by mouth. 2 Active cyclobenzaprine (FLEXERIL) 5 MG tablet 3 Active FLUoxetine (PROZAC) 40 MG capsule Take 40 mg by mouth. 2 Active modafiniL (PROVIGIL) 200 MG tablet 3 Active omeprazole (PRILOSEC) 40 MG capsule Take 40 mg by mouth. 2 Active traZODone (DESYREL) 100 MG tablet Take 100 mg by mouth. 2 Active melatonin [address] 10 mg under the tongue nightly at bedtime as needed. Active albuterol 90 mcg/actuation inhaler Inhale 2 puffs into the lungs every 6 (six) hours as needed for wheezing. Active traMADoL (ULTRAM) 50 mg tablet Take 1 tablet (50 mg total) by mouth every 6 (six) hours as needed for pain (specific location in comments). 25 tablet 4 Active Active Problems Problem Noted Date Diagnosed Date Displaced fracture of shaft of right clavicle with delayed healing Encounters Date Type Department Care Team Description 07/18/2025 10:00 AM EDT Office Visit [facility] [address] [place] [address] [place] [address] Joseline Cartagena, Elza Xiao CCC-TRE Cognitive communication deficit (Primary Dx) 07/11/2025 10:00 AM EDT Office Visit [address] [address] Joseline Cartagena, Elza Xiao CCC-TRE Cognitive communication deficit (Primary Dx) 06/20/2025 10:00 AM EDT Office Visit [address] [address] Joseline Cartagena, Elza Xiao CCC-TRE Cognitive communication deficit (Primary Dx) 06/13/2025 10:00 AM EDT Office Visit [address] [place] [address] Joseline Cartagena, Elza Xiao CCC-TRE Cognitive communication deficit (Primary Dx) from Last 3 Months Social History Tobacco Use Types Packs/Day Years Used Date Smoking Tobacco: Never Smokeless Tobacco: Never Tobacco Cessation:Counseling Given: Not Answered Alcohol Use Standard Drinks/Week Comments Yes 3 [...] Orientation Straight 06/03/2023 1: 41 PM EDT Last Filed Vital Signs Vital Sign Reading Time Taken Comments Blood Pressure 115/58 03/01/2024 8:00 PM EDT Pulse 86 03/01/2024 8:00 PM EDT Temperature 36.8 C (98.3 F) 03/01/2024 8:00 PM EDT Respiratory Rate 16 03/01/2024 6:45 PM EDT Oxygen Saturation 94% 03/01/2024 8:00 PM EDT Inhaled Oxygen Concentration - - Weight 104.3 kg (230 lb) 03/01/2024 1:03 PM EDT Height 172.7 cm (5' 8 ) 03/01/2024 1:03 PM EDT Body Mass Index 34.97 03/01/2024 1:03 PM EDT Plan of Treatment Health Maintenance Due Date Last Done Comments LIPID PANEL 1972 DEPRESSION SCREENING 1984 HEPATITIS C SCREENING 1990 HIV ONE-TIME SCREENING (18-65 YEARS) 1990 PAP SMEAR 1993 SCREENING FOR DIABETES 2007 MAMMOGRAM 2012 COLOGUARD 2017 COLONOSCOPY 2017 COLORECTAL CANCER SCREENING 2017 FIT TEST 2017 FOBT 2017 SIGMOIDOSCOPY 2017 VIRTUAL COLONOSCOPY 2017 PNEUMOCOCCAL VACCINES (50+ years) (1 of 1 - PCV) 2022 ZOSTER VACCINES (1 of 2) 2022 INFLUENZA VACCINE (#1) 2025 , 08/25/2023, 10/22/2022, Additional history exists COVID-19 VACCINE (2024- season) 2025 08/29/2024, 08/27/2024, 08/25/2023, Additional history exists Adult Td,Tdap Booster 05/01/2032 05/01/2022 RSV VACCINE (1 - 1-dose 75+ series) 2047 SMOKING STATUS SCREENING (Once After 26 Yrs) Completed 04/16/2024 HEPATITIS A VACCINES Aged Out No long er eligible based on patient's age to complete this topic HIB VACCINES Aged Out No longer eligi ble based on patient's age to complete this topic MENINGOCOCCAL VACCINES (ACWY) Aged Out No longer eligible based on patient's age to complete this topic MENINGOCOCCAL VACCINES (B) Aged Out N o longer eligible based on patient's age to complete this topic Medical Devices Implanted Type Area Hardware Test Engineer Device Identifier Shelf Expiration Date Model / Serial / Lot Graft Bone 1cc Dbx Allo Dbm Demineralized Matrix Freeze Dried Putty Syringe - [id number] Implanted:Qty: 1 on 07/24/2023 by Hillary Rodriguez MD at [facility] [employer] Right: Clavicle MUSCULOSKELETAL TRANSPLANT 03/27/2025 [id number] / / Screw Bone 3.5x18mm Variax 2 T10 Locking Fully Threaded Small - [id number] Implanted:Qty: 1 on 07/24/2023 by Hillary Rodriguez MD at [facility] Right: Clavicle [employer] [id number] / / Screw Bone 3.5x16mm Variax 2 T10 Non Locking Fully Threaded Small - [id number] Implanted:Qty: 1 on 07/24/2023 by Hillary Rodriguez MD at [facility] Right: Clavicle [employer] [id number] / / Screw Bone 3.5x18mm Variax 2 T10 Non Locking Fully Threaded Small - [id number] Implanted:Qty: 1 on 07/24/2023 by Hillary Rodriguez MD at [facility] Right: Clavicle [employer] [id number] / / Screw Bone 3.5x16mm Variax 2 T10 Locking Fully Threaded Small - [id number] Implanted:Qty: 3 on 07/24/2023 by Hillary Rodriguez MD at [facility] Right: Clavicle [employer] [id number] / / Screw Bone 3.5x14mm Variax 2 T10 Non Locking Fully Threaded Small - [id number] Implanted:Qty: 1 on 07/24/2023 by Hillary Rodriguez MD at [facility] Right: Clavicle [employer] [id number] / / Screw Bone 3.5x22mm Variax 2 T10 Non Locking Fully Threaded Small - [id number] Implanted:Qty: 1 on 07/24/2023 by Hillary Rodriguez MD at [facility] Clavicle [employer] [id number] / / Clavicle Plate 122mm 8 Hole Shaft Variax Titanium Bridge Locking Decreased Curvature Superior Mid Rt Reprocessed - [id number] Implanted:Qty: 1 on 07/24/2023 by Hillary Rodriguez MD at [facility] Right: Clavicle [employer] [id number] / / Description:Transferred from one time implant Screw Bone 3.5x20mm Variax 2 T10 Locking Fully Threaded Small - [id number] Implanted:Qty: 1 on 03/01/2024 by Hillary Rodriguez MD at [facility] Right: Clavicle [employer] [id number] / / Screw Bone 3.5x22mm Variax 2 T10 Locking Fully Threaded Small - [id number] Implanted:Qty: 2 on 03/01/2024 by Hillary Rodriguez MD at [facility] Right: Clavicle [employer] [id number] / / Screw Bone 3.5x16mm Variax 2 T10 Non Locking Fully Threaded Small - [id number] Implanted:Qty: 2 on 03/01/2024 by Hillary Rodriguez MD at [facility] Right: Clavicle [employer] [id number] / / Screw Bone 3.5x18mm Variax 2 T10 Non Locking Fully Threaded Small - [id number] Implanted:Qty: 2 on 03/01/2024 by Hillary Rodriguez MD at [facility] Right: Clavicle [employer] [id number] / / Screw Bone 24x3.5mm Variax 2 T10 Non Locking Fully Threaded Small - [id number] Implanted:Qty: 1 on 03/01/2024 by Hillary Rodriguez MD at [facility] Right: Clavicle [employer] [id number] / / Screw Bone 3.5x20mm Variax 2 T10 Non Locking Fully Threaded Small - [id number] Implanted:Qty: 1 on 03/01/2024 by Hillary Rodriguez MD at [facility] Right: Clavicle [employer] [id number] / / Bone Plate 97mm 8 Hole Variax Titanium Anterior Midshaft - [id number] Implanted:Qty: 1 on 03/01/2024 by Hillary Rodriguez MD at [facility] Right: Clavicle [employer] [id number] / / Description:Transferred from one time implant Variax 2 Clavicle Plate 8 Hole Implanted:Qty: 1 on 03/01/2024 by Hillary Rodriguez MD at [facility] Right: Clavicle Screw Bone 3.5x14mm Variax 2 T10 Locking Fully Threaded Small - [id number] Implanted:Qty: 2 on 03/01/2024 by Hillary Rodriguez MD at [facility] Right: Clavicle [employer] [id number] / / Insurance MEDICARE A MEDICARE A UNITED R UNITED R UNITED R MEDICARE A MEDICARE A MEDICARE A [facility] MEDICARE A Care Teams Sas Programmer Relationship Specialty Start Date End Date Roseline Galarza MD PCP - General Internal Medicine 05/23/25 Additional Source Comments The information contained in this document represents components of the legal health record. It is not the complete legal health record.[facility]
--- OUTSIDE RECORDS SUMMARY | 2025-09-07 17:23 | XMS_ITS | Encounter Summary ---
Author Organization [facility] Address [address] [facility] [address] [place] [address] Phone Care Team Providers Care Is/It Project Manager Name Role Phone José Miguel Stevens MD Primary Care Provider Roseline Galarza MD Primary Care Provider Encounter Details Date Type Department Care Team (Late st Contact Info) Description 03/01/2024 Procedure Pass [facility] Periop [address] [place] [address] Social History Tobacco Use Types Packs/Day Years [...] on filedocumented in this encounter Care Teams Is/It Project Manager Relationship Specialty Start Date End Date José Miguel Stevens MD [address] [place] [address] [place] [address] PCP - General Internal Medicine 06/21/22 05/22/25 Roseline Galarza MD [address] [place] [address] [place] [address] PCP - General Internal Medicine 05/23/25 documented as of this encounter Additional Source Comments The information contained in this document represents components of the legal health record. It is not the complete legal health record.[facility]
--- OUTSIDE RECORDS SUMMARY | 2025-09-07 17:23 | XMS_ITS | Encounter Summary ---
Author Organization [facility] Address [address] [employer] [facility] [address] [place] [address] Phone Care Team Providers Care Regulatory Coordinator Name Role Phone José Miguel Stevens MD Primary Care Provider Roseline Galarza MD Primary Care Provider Encounter Details Date Type Department Care Team (Late st Contact Info) Description 07/24/2023 Procedure Pass [facility] [address] [place] [address] Social History Tobacco Use Types Packs/Day Years [...] on filedocumented in this encounter Care Teams Regulatory Coordinator Relationship Specialty Start Date End Date José Miguel Stevens MD [address] [place] [address] Dr LAGOS [address] [place] [address] PCP - General Internal Medicine 06/21/22 05/22/25 Roseline Galarza MD [address] [place] [address] Dr LAGOS [address] [place] [address] PCP - General Internal Medicine 05/23/25 documented as of this encounter Additional Source Comments The information contained in this document represents components of the legal health record. It is not the complete legal health record.[facility]
--- OUTSIDE RECORDS SUMMARY | 2025-09-07 17:23 | XMS_ITS | Encounter Summary ---
Author Organization [facility] Address [address] [facility] [address] [place] [address] Phone Care Team Providers Care Planing Machine Operator Name Role Phone José Miguel Stevens MD Primary Care Provider Roseline Galarza MD Primary Care Provider Encounter Details Date Type Department Care Team (Late st Contact Info) Description 03/01/2024 Procedure Pass [facility] [address] [place] [address] Social History Tobacco Use Types Packs/Day Years [...] on filedocumented in this encounter Care Teams Planing Machine Operator Relationship Specialty Start Date End Date José Miguel Stevens MD [address] [place] [address] [place] [address] PCP - General Internal Medicine 06/21/22 05/22/25 Roseline Galarza MD [address] [place] [address] [place] [address] PCP - General Internal Medicine 05/23/25 documented as of this encounter Additional Source Comments The information contained in this document represents components of the legal health record. It is not the complete legal health record.[facility]
--- OUTSIDE RECORDS SUMMARY | 2025-09-07 17:23 | XMS_ITS | Clinical Summary ---
Author Organization [facility] Address [address] [place] [address] Care Team Providers Care Gluten Settling Tender Name Role Phone Roseline Anaya MD Primary Care Provider [phone] Allergies Active Allergy Reactions Criticality Noted Date Comments Oxycodone Hallucinations 09/28/2024 Sulfa (Sulfonamide Antibiotics) Hives 03/2024 Medications omeprazole (PriLOSEC) [address] capsule Take 1 capsule (40 mg total) by mouth 2 (two) times a day. Do not crush or chew. Active modafiniL (PROVIGIL) 200 mg tablet Take 1 tablet (200 mg total) by mouth 2 (two) times a day. Active buPROPion XL (WELLBUTRIN XL) 300 mg 24 hr tablet Take 1 tablet (300 mg total) by mouth 1 (one) time each day. Do not crush, chew, or split. Active atorvastatin (LIPITOR) 20 mg tablet Take 1 tablet (20 mg total) by mouth at bedtime. Active traZODone (DESYREL) 100 mg tablet Take 2 tablets (200 mg total) by mouth at bedtime. Active dicyclomine (BENTYL) 10 mg capsule Take 1 capsule (10 mg total) by mouth 2 (two) times a day. Active multivitamin tablet Take 1 tablet by mouth 1 (one) time each day. Active albuterol HFA (PROAIR HFA ; PROVENTIL HFA ; VENTOLIN HFA) 90 mcg/actuation inhaler Inhale 2 puffs by mouth every 6 (six) hours if needed for wheezing. Active cetirizine (ZyrTEC) 10 mg tablet Take 1 tablet (10 mg total) by mouth. 11/08/2022 Active guaiFENesin-code ine (ROBITUSSIN-AC) 100-10 mg/5 mL syrup GIVE 5 ML BY MOUTH EVERY 8 HOURS NEEDED FOR COUGH 09/28/2024 Active cyclobenzaprine (FLEXERIL) 5 mg tablet 04/17/2023 Active amphetamine-dext roamphetamine XR (ADDERALL XR) 10 mg 24 hr capsule 25 mg. 09/29/2024 Ac tive budesonide-formo teroL (SYMBICORT) 160-4.5 mcg/actuation inhaler 11/02/2024 Active vitamin E, dl,tocopheryl acet, (vitamin E, dl, acetate,) 45 mg (100 unit) capsule Take 1 capsule (100 Units total) by mouth 1 (one) time each day. Active sucralfate (CARAFATE) 1 gram tabletIndication s:Gastroesophage al reflux disease without esophagitis Take 1 tablet (1 g total) by mouth 4 (four) times a day. Take 1 hour before meals and at bedtime 120 each 11 08/09/2025 08/09/20 26 Active Active Problems Problem Noted Date Diagnosed Date Excessive fluid intake 08/08/2025 History of adenomatous polyp of colon 11/23/2024 Liver enzyme elevation 11/23/2024 Gastroesophageal reflux disease without esophagi tis 11/23/2024 Epigastric pain 11/23/2024 Nausea and vomiting 11/23/2024 Impaired cognition 11/04/2024 Overview (08/08/2025): Impaired functional cognition due to Covid 19 infection Asthma 09/30/2024 Class 1 obesity 09/30/2024 Anxiety 09/30/2024 Depression 09/30/2024 Displaced fracture of shaft of right clavicle with delayed healing 09/30/2024 Hyperlipidemia 09/30/2024 Insomnia 09/30/2024 Long COVID 09/30/2024 Mixed incontinence 09/30/2024 Seasonal allergies 09/30/2024 Encounters Date Type Department Care Team Description 08/09/2025 9:00 AM EDT Office Visit Gastroenterology - [address] [address] Claus Beasley MD Gastroesophageal reflux disease without esophagitis (Primary Dx); Epigastric pain; Liver enzyme elevation from Last 3 Months Surgical History Surgery Date Site/Laterality Comments CLAVICLE SURGERY Right GALLBLADDER HYSTERECTOMY SLEEVE GASTROPLASTY CHOLECYSTECTOMY 2000 COLONOSCOPY 2023 BARIATRIC SURGERY 2018 Medical History Medical History Date Comments Hyperlipidemia Depression Sleep apnea 2014 Chronic diarrhea 2015 Colon polyp 2023 Diverticulosis 2023 GERD (gastroesophageal reflux disease) 2005 Hernia, internal 2023 Anxiety 2004 Family History Medical History Relation Name Comments Cirrhosis Brother 1 Dino Hyperlipidemia Brother 1 Dino Colon polyps Brother 2 Oneil Hyperlipidemia Brother 2 Oneil Hypertension Brother 2 Oneil Stroke Brother 2 Oneil Colon polyps Brother 3 Edward Diabetes Daughter Chelsie Hyperlipidemia Father Alecia Hypertension Father Alecia Hyperlipidemia Mother Sherita Colon polyps Sister Sherita Relation Name Status Comments Brother 1 Dino Brother 2 Oneil Brother 3 Edward Daughter Chelsie Father Alecia Mother Sherita Sister Sherita Social History Tobacco Use Types Packs/Day Years Used Date Smoking Tobacco: Never Smokeless Tobacco: Never Tobacco Cessation:Counseling Given: Not Answered Alcohol Use Standard Drinks/Week Comments Yes 2 (1 standard drink = 0.6 oz pure alcohol) Only drink socially when stomach feels ok. Not more than 1 Interpersonal Safety Answer Date Record ed Physical Abuse Unrecognized value 10/04/2024 Verbal Abuse Unrecognized value 10/04/2024 Comments No Sex and Gender Information Value Date Recorded Sex Assigned at Female 09/15/2024 9:40 AM EDT Legal Sex Female 3:12 PM EST Gender Identity Female 09/15/2024 9:40 AM EDT Sexual Orientation Straight 09/15/2024 9: 40 AM EDT Obstetrics History Last Filed Vital Signs Vital Sign Reading Time Taken Comments Blood Pressure 117/77 10/04/2024 4:00 PM EST Pulse 67 10/04/2024 4:00 PM EST Temperature 36.7 C (98 F) 10/04/2024 4:00 PM EST Respiratory Rate 14 10/04/2024 4:00 PM EST Oxygen Saturation 98% 10/04/2024 4:00 PM EST Inhaled Oxygen Concentration - - Weight 101 kg (222 lb 6.4 oz) 08/09/2025 8:49 AM EDT Height 170.9 cm (5' 7.3 ) 08/09/2025 8:49 AM EDT Body Mass Index 34.52 08/09/2025 8:49 AM EDT Plan of Treatment Health Maintenance Due Date Last Done Comments Breast Cancer Screening 1970 Hepatitis B Vaccines (1 of 3 - 19+ 3-dose series) 1991 Pneumococcal Vaccine: 50+ Years (1 of 2 - PCV) 1991 Cervical Cancer Screening: Pap Smear 1993 Cholesterol Screening (Lipid Panel) 01/13/2022 HIV Screening 01/13/2022 Social Influencers of Health Screening 01/13/2022 RSV Immunization Adult Patients (1 - Risk 50-74 years 1-dose series) 2022 Zoster Vaccines (1 of 2) 2022 Depression Screening 11/24/2024 COVID-19 Vaccine (2024- season) 2025 08/29/2024, 08/27/2024, 08/25/2023, Additional history exists Influenza Vaccine (#1) 2025 , 08/27/2024, 08/25/2023, Additional history exists DTaP,Tdap,and Td Vaccines (2 - Td or Tdap) 05/01/2032 05/01/2022 Colorectal Cancer Screening: Colonoscopy 10/04/2034 10/04/2024, 04/25/2008 Hepatitis C Screening Completed 11/23/2024 HIB Vaccines Aged Out No longer eligi ble based on patient's age to complete this topic HPV Vaccines Aged Out No longer eligi ble based on patient's age to complete this topic Hepatitis A Vaccines Aged Out No long er eligible based on patient's age to complete this topic IPV Vaccines Aged Out No longer eligi ble based on patient's age to complete this topic MMR Vaccines Aged Out No longer eligi ble based on patient's age to complete this topic Meningococcal ACWY Vaccine Aged Out N o longer eligible based on patient's age to complete this topic Meningococcal B Vaccine Aged Out No l onger eligible based on patient's age to complete this topic RSV Immunization Patients Under 20 months Aged Out No longer eligible based on patient's age to complete this topic Varicella Vaccines Aged Out No longer eligible based on patient's age to complete this topic Procedures Procedure Name Priority Date/Time Associated Diagnosis Comments WILLIAMSON FIBROSURE Routine 06/07/2025 Liver enzyme elevation HEPATITIS C ANTIBODY Routine 11/23/2024 9:02 AM EST History of adenomatous polyp of colon Acid phosphatase elevated COLONOSCOPY Routine 10/04/2024 3:39 PM EST Colon cancer screening Family history of colonic polyps from Last 3 Months or Most Recently Relevant to Health Maintenance Results * WILLIAMSON fibrotest liver diease (06/07/2025) Blood Venous blood specimen / Unknown us Claus Beasley MD LAB BLOOD ORDERABLES Final Result [facility]TERNAL LAB (NON-INTERFACED) * Hepatitis C antibody (11/23/2024 9:02 AM EST) Hepatitis C Antibody Negative Negative LAB CHEMISTRY METHOD 11/23/2024 12:23 PM EST [facility] Blood Venous blood specimen / Unknown Venipuncture / Unknown 11/23/2024 9:02 AM EST 11/23/2024 10:45 AM EST Claus Beasley MD LAB BLOOD ORDERABLES Final Result [facility] [address] [place] [address], [place] [phone] * COLONOSCOPY Sedation; [facility] ENDOSCOPY (10/04/2024 3:39 PM EST) Anatomical Region Laterality Modality Endoscopy 10/04/2024 3:06 PM EST Narrative 10/04/2024 3:34 PM EST [facility] GI Patient Name: Leisa Campbell Procedure Date: 10/04/2024 3:06 PM Date of : 1970 Age: 54 Room: ROOM 15 Gender: Female Note Status: Finalized Attending MD: Claus Beasley MD, Procedure Date No Time: 10/04/2024 Procedure: Colonoscopy Indications: Colon cancer screening in patient at increased risk: Family history of 1st-degree relative with colon polyps before age 60 years Providers: Claus Beasley MD Referring MD: Claus Beasley MD Medicines: Propofol per Anesthesia Complications: No immediate complications. Estimated Blood Loss: Estimated blood loss was minimal. Procedure: Pre-Anesthesia Assessment: - ASA Grade Assessment: II - A patient with mild systemic disease. After I obtained informed consent, the scope was passed under direct vision. Throughout the procedure, the patient's blood pressure, pulse, and oxygen saturations were monitored continuously.The Olympus Colonoscope was introduced through the anus and advanced to the cecum, identified by appendiceal orifice and ileocecal valve. The colonoscopy was technically difficult and complex due to extreme spasm. Successful completion of the procedure was aided by glucagon. The patient tolerated the procedure well. The quality of the bowel preparation was adequate. Findings: The perianal and digital rectal examinations were normal. An 8 mm polyp was found in the cecum. The polyp was sessile. The polyp was removed with a cold snare. Resection and retrieval were complete. A 10 mm polyp was found in the transverse colon. The polyp was sessile. The polyp was removed with a cold snare. Resection and retrieval were complete. Two sessile polyps were found in the splenic flexure. The polyps were 8 to 12 mm in size. These polyps were removed with a piecemeal technique using a cold snare. Resection and retrieval were complete. A 9 mm polyp was found in the descending colon. The polyp was sessile. The polyp was removed with a cold snare. Resection and retrieval were complete. Multiple diverticula were found in the sigmoid colon. The exam was otherwise without abnormality on direct and retroflexion views. Impression: - One 8 mm polyp in the cecum, removed with a cold snare. Resected and retrieved. - One 10 mm polyp in the transverse colon, removed with a cold snare. Resected and retrieved. - Two 8 to 12 mm polyps at the splenic flexure, removed piecemeal using a cold snare. Resected and retrieved. - One 9 mm polyp in the descending colon, removed with a cold snare. Resected and retrieved. - Diverticulosis in the sigmoid colon. - The examination was otherwise normal on direct and retroflexion views. Recommendation: - Await pathology results. - Repeat colonoscopy in 2 years for surveillance. Procedure Code(s): --- Professional --- 39435, Colonoscopy, flexible; with removal of tumor(s), polyp(s), or other lesion(s) by snare technique Diagnosis Code(s): --- Professional --- Z83.71, Family history of colonic polyps D12.0, Benign neoplasm of cecum D12.3, Benign neoplasm of transverse colon (hepatic flexure or splenic flexure) D12.4, Benign neoplasm of descending colon K57.30, Diverticulosis of large intestine without perforation or abscess without bleeding CPT copyright 2020 [employer]. All rights reserved. The codes documented in this report are preliminary and upon robotype operator review may be revised to meet current compliance requirements. Claus Beasley MD Claus Beasley MD 10/04/2024 3:34:39 PM This report has been signed electronically.Claus Beasley MD Number of Addenda: 0 Note Initiated On: 10/04/2024 3:06 PM Scope In: Scope Out: Endoscopy Department at [facility] - [address] [place] [id number] Procedure Note Claus Beasley MD - 10/04/2024 [facility] GI Patient Name: Leisa Campbell Procedure Date: 10/04/2024 3:06 PM Date of : 1970 Age: 54 Room: ROOM 15 Gender: Female Note Status: Finalized Attending MD: Claus Beasley MD, Procedure Date No Time: 10/04/2024 Procedure: Colonoscopy Indications: Colon cancer screening in patient at increasedrisk: Family history of 1st-degree relative with colon polyps before age 60 years Providers: Claus Beasley MD Referring MD: Claus Beasley MD Medicines: Propofol per Anesthesia Complications: No immediate complications. Estimated Blood Loss: Estimated blood loss was minimal. Procedure: Pre-Anesthesia Assessment: - ASA Grade Assessment: II - A patient with mild systemic disease. After I obtained informed consent, the scope was passed under direct vision. Throughout theprocedure, the patient's blood pressure, pulse, and oxygen saturations were monitored continuously.The Olympus Colonoscope was introduced through the anus and advanced to the cecum, identified by appendiceal orifice and ileocecal valve. The colonoscopy was technically difficult and complex due to extreme spasm. Successful completion of the procedure was aided by glucagon. The patient tolerated theprocedure well. The quality of the bowel preparation was adequate. Findings: The perianal and digital rectal examinations were normal. An 8 mm polyp was found in the cecum. The polyp was sessile. The polyp was removed with a cold snare. Resection and retrieval were complete. A 10 mm polyp was found in the transverse colon.The polyp was sessile. The polyp was removed with acold snare. Resection and retrieval were complete. Two sessile polyps were found in the splenicflexure. The polyps were 8 to 12 mm in size. These polypswere removed with a piecemeal technique using a coldsnare. Resection and retrieval were complete. A 9 mm polyp was found in the descending colon. The polyp was sessile. The polyp was removed with acold snare. Resection and retrieval were complete. Multiple diverticula were found in the sigmoidcolon. The exam was otherwise without abnormality ondirect and retroflexion views. Impression: - One 8 mm polyp in the cecum, removed with a cold snare. Resected and retrieved. - One 10 mm polyp in the transverse colon, removed with a cold snare. Resected and retrieved. - Two 8 to 12 mm polyps at the splenic flexure, removed piecemeal using a cold snare. Resected and retrieved. - One 9 mm polyp in the descending colon, removedwith a cold snare. Resected and retrieved. - Diverticulosis in the sigmoid colon. - The examination was otherwise normal on directand retroflexion views. Recommendation: - Await pathology results. - Repeat colonoscopy in 2 years for surveillance. Procedure Code(s): --- Professional --- 00574, Colonoscopy, flexible; with removal of tumor(s), polyp(s), or other lesion(s) by snare technique Diagnosis Code(s): --- Professional --- Z83.71, Family history of colonic polyps D12.0, Benign neoplasm of cecum D12.3, Benign neoplasm of transverse colon (hepatic flexure or splenic flexure) D12.4, Benign neoplasm of descending colon K57.30, Diverticulosis of large intestine without perforation or abscess without bleeding CPT copyright 1 [employer]. All rights reserved. The codes documented in this report are preliminary and upon robotype operator reviewmay be revised to meet current compliance requirements. Claus Beasley MD Claus Beasley MD 10/04/2024 3:34:39 PM This report has been signed electronically.Claus Beasley MD Number of Addenda: 0 Note Initiated On: 10/04/2024 3:06 PM Scope In: Scope Out: Endoscopy Department at [facility] - [address] [place] [phone] us Claus Beasley MD GI~PROCEDURE ORDERABLES Fin al Result from Last 3 Months or Most Recently Relevant to Health Maintenance Insurance [facility] Care Teams Gluten Settling Tender Relationship Specialty Start Date End Date Roseline Anaya MD [address] [place] [phone] PCP - General Internal Medicine 06/29/25
--- OUTSIDE RECORDS SUMMARY | 2025-09-07 17:23 | XMS_ITS | Encounter Summary ---
Author Organization [facility] Address [address] [facility] [address] [place] [phone] Phone Care Team Providers Care Tax Agent Name Role Phone José Miguel Stevens MD Primary Care Provider Roseline Galarza MD Primary Care Provider Encounter Details Date Type Department Care Team (Late st Contact Info) Description 01/23/2024 Procedure Pass [address] [address] Social History Tobacco Use Types Packs/Day Years [...] 1:41 PM EDT Sexual Orientation Straight 06/03/2023 1 :41 PM EDT documented as of this encounter Plan of Treatment Not on file documented as of this encounter Visit Diagnoses Not on filedocumented in this encounter Care Teams Tax Agent Relationship Specialty Start Date End Date José Miguel Stevens MD [address] [place] [address] [place] [address] PCP - General Internal Medicine 06/21/22 05/22/25 Roseline Galarza MD [address] [place] [address] [place] [address] PCP - General Internal Medicine 05/23/25 documented as of this encounter Additional Source Comments The information contained in this document represents components of the legal health record. It is not the complete legal health record.[facility]
== END 2025-09-07 14:44 | disposition home or self-care (01) ==
LOC: HO.HMCFM 13:36
PROVIDERS: PCP Internal Medicine; Visit Provider Nurse Practitioner Family
DX: R03.0 Elevated blood-pressure reading, without diagnosis of hypertension (principal); K57.92 Diverticulitis of intestine, part unspecified, without perforation or abscess without bleeding; R10.85 Abdominal pain of multiple sites

== ENCOUNTER 2025-09-16 09:24 | Outpatient (AMB) | payer OTHER, SELFPAY ==
--- NOTE | 2025-09-16 09:27 | A.OFFPC_ITS ---
Vital Signs 09/16/25 09:32 Height 5 ft 7.72 in Weight 215 lb 2 oz BMI 33.0 BP 134/88 Blood Pressure Location Rt brachial Position Sitting Respiration 14 Pulse 87 Pulse Source Pulse Oximeter Temp 98 F Temp Source Oral Pulse Oximetry (%) 98 Oxygen Delivery Method Room Air Intake Visit Reasons: 1 week FU HTN/Diverticulitis (me or Geovanni) Intake Note: 1 week fu htn/diverticulitis Clerical Coordinator Required: No Allergies Sulfa (Sulfonamide Antibiotics) (SULFA (SULFONAMIDE ANTIBIOTICS)) Allergy (Unknown, Verified 09/16/25 09:30) HIVES,NAUSEA,VOMITING Pt states no food allergies Allergy (Severe, Uncoded 09/07/25 13:40) Rash Sulfa Allergy (Unknown, Uncoded 09/07/25 13:40) Unknown Tobacco use date assessed: 09/16/25 Dental Screening Dental Screen Date: 09/16/25 Did you have a dental visit in the last 12 months?: Yes Did you have a dental problem in the last 6 months where you did not have access to dental care?: No Was dental information given to patient?: Patient has dentist HPI HPI Comments History of Present Illness Details 55 year old female with a past medical h istory of ADD, insomnia, depression, fibromyalgia, NAFLD, colon polyp, JERRY, IBS, obesity s/p gastric sleeve presenting for follow up Was seen 09/07/25 with left lower quadrant pain, presumed diverticulitis given history. Started abx. Today completed 10/10 days of antibiotics. She was evaluated by a colleague 10 days ago. At the time her BP was elevated. It has improved back to borderline BH: On trazodone, adderall XR. Follows with Alessandra Lugo. GI: Follows with Dr Beasley for NAFLD. History of diverticulosis, diverticulitis. Last lipids elevated she will go back on statin MSK: Has seen arthritis treatment center in the past. Shattered clavicle ~2 years ago. Back in PT for vertigo. Long haul COVID-left work in June 2021 because was unable to maintain work. 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 She has done PT/speech. Following with Dr Aponte, gardner Status total hysterectomy. Mammo: 05/2024 Colonoscopy 09/2024-[address] Beasley ROS see HPI PHYSICAL EXAM: GENERAL: Alert and oriented x 3. NAD EYES: EOMI. Anicteric. HENT: Moist mucous membranes. No scleral icterus. No cervical lymphadenopathy. LUNGS: Clear to auscultation bilaterally. CARDIOVASCULAR: Regular rate and rhythm. No murmur. No JVD. ABDOMEN: Soft, non-tender +bs EXTREMITIES: No edema. Non-tender. SKIN: No rashes or lesions. Warm. NEUROLOGIC: No focal neurological deficits. CN II-XII grossly intact PSYCHIATRIC: Cooperative. 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) Cognitive needs: Yes (trouble remembering) Hearing needs: Yes (bilateral hearing aid) Vision needs: Yes (glasses) Questionnaire Thrive Questionnaire Date Thrive assessed: 05/27/25 I am a: Patient What is your living situation today?: I have a steady place to live Within the past 12 months, did the food you bought not last and you didn't have the money to get more?: Never true Within the past 12 months, did you worry whether your food would run out before you got money to buy more?: Never true Do you have trouble paying for medicines?: No Do you have trouble getting transportation to medical appointments?: No Do you have trouble paying your heating and electricity bill?: No Do you have trouble taking care of your child, family member or friend?: No Do you have trouble with day-to-day activities such as bathing, preparing meals, shopping, managing finances, etc.?: Yes Are you currently unemployed and looking for a job?: I choose not to answer this question Are you interested in more education?: No Please select the resources that you would like help with: None Currently or been in a relationship where the following occur: No concerns reported THRIVE Score: 0 Physical exam (Primary Care) Vital Signs: Last Vital Signs Temp 98 F 09/16/25 09:32 Pulse 87 09/16/25 09:32 Resp 14 09/16/25 09:32 BP 134/88 09/16/25 09:32 Pulse Ox 98 09/16/25 09:32 Oxygen Delivery Method Room Air 09/16/25 09:32 BMI result Body Mass Index 33.0 Tobacco/Smoking Status: Tobacco use Status Tobacco use date assessed 09/16/25 09/16/25 09:35 Patient Tobacco Use Status Never used Tobacco 09/16/25 09:35 e-Cigarette/Vaping Use Never Used 09/16/25 09:35 Thrive Assessment: Date of Thrive Assessment Date Thrive assessed 05/27/25 09/16/25 09:35 Currently or been in a relationship where the following occur: No concerns reported Coding Level of Care Code Est Pt Level 4 (76588) Diagnoses Diverticulitis K57.92 NAFLD (nonalcoholic fatty liver disease) K76.0 Hyperlipidemia, unspecified hyperlipidemia type E78.5 Hyperlipidemia type: unspecified Assessment & Plan Assessment & Plan (1) Diverticulitis: Code(s): K57.92 - Diverticulitis of intestine, part unspecified, without perforation or abscess without bleeding Category: Medical (2) NAFLD (nonalcoholic fatty liver disease): Code(s): K76.0 - Fatty (change of) liver, not elsewhere classified Category: Medical (3) Hyperlipidemia: Code(s): E78.5 - Hyperlipidemia, unspecified Category: Medical Qualifiers: Hyperlipidemia type: unspecified Qualified Code(s): E78.5 - Hyperlipidemia, unspecified Plan 55 year old female presenting for follow up Improved LLQ pain Improved but still borderline blood pressure. Will continue to watch HLD-start atorvastatin 40mg. She has tolerated this in the past Orders: Orders Lipid Panel 3 Months K76.0 - Fatty (change of) liver, not elsewhere classified Comprehensive Met. Panel 3 Months K76.0 - Fatty (change of) liver, not elsewhere classified Medications: New atorvastatin (Lipitor) 40 mg PO BEDTIME 90 tabs 3RF Discontinued amoxicillin-pot clavulanate 875-125 mg Discontinued Reason: Doctor's Order 1 tab PO Q12H 10 days 20 tabs 0RF
[2025-09-16 09:32] VITALS: BP 134/88; PULSE 87; RESP 14; TEMP 36.6; O2SAT 98; BMI 33.0
--- OUTSIDE RECORDS SUMMARY | 2025-09-16 10:15 | XMS_ITS | Encounter Summary ---
Author Organization [facility] Address [address] [facility] [address] [place] [address] Phone Care Team Providers Care Single Wire Saw Operator Name Role Phone José Miguel Stevens MD Primary Care Provider Roseline Galarza MD Primary Care Provider Encounter Details Date Type Department Care Team (Late st Contact Info) Description 07/24/2023 Procedure Pass [facility] Periop [address] [place] [address] Social History Tobacco Use Types Packs/Day Years [...] on filedocumented in this encounter Care Teams Single Wire Saw Operator Relationship Specialty Start Date End Date José Miguel Stevens MD [address] [place] [address] Dr LAGOS [address] [place] [address] PCP - General Internal Medicine 06/21/22 05/22/25 Roseline Galarza MD [address] [place] [address] Dr LAGOS [address] [place] [address] PCP - General Internal Medicine 05/23/25 documented as of this encounter Additional Source Comments The information contained in this document represents components of the legal health record. It is not the complete legal health record.[facility]
--- OUTSIDE RECORDS SUMMARY | 2025-09-16 10:15 | XMS_ITS | Clinical Summary ---
Author Organization [facility] Address [address] [address] Phone Care Team Providers Care Warp Splitter Name Role Phone Roseline Galarza MD Primary Care Provider Allergies Active Allergy Reactions Criticality Noted Date Comments Oxycodone Dizziness,Mental Status Change 07/10/2023 Sulfa (Sulfonamide Antibiotics) Diarrhea,Hives,Wheezi ng 07/10/2023 Other reaction(s): rash & vomiting Medications coenzyme A33-wgiz lip ac-vit E 30-50-100 mg-mg-unit Cap Take [...] Description 07/18/2025 10:00 AM EDT Office Visit [facility] [address] [place] [address] Joseline Cartagena, Elza Xiao CCC-SCHOOL BASED THERAPIST Cognitive communication deficit (Primary Dx) 07/11/2025 10:00 AM EDT Office Visit [address] [address] Joseline Cartagena, Elza Xiao CCC-TRE Cognitive communication deficit (Primary Dx) 06/20/2025 10:00 AM EDT Office Visit [address] [address] Joseline Cartagena, Elza Xiao CCC-SCHOOL BASED THERAPIST Cognitive communication deficit (Primary Dx) from Last [...] this topic Medical Devices Implanted Type Area Ophthalmologist Device Identifier Shelf Expiration Date Model / Serial / Lot Graft Bone 1cc Dbx Allo Dbm Demineralized Matrix Freeze Dried Putty Syringe - [id number] Implanted:Qty: 1 on 07/24/2023 by Hillary Rodriguez MD at [facility] BONETISSUE Right: Clavicle MUSCULOSKELETAL TRANSPLANT 03/27/2025 [id number] / / Screw Bone 3.5x18mm Variax 2 T10 Locking Fully Threaded Small - [id number] Implanted:Qty: 1 on 07/24/2023 by Hillary Rodriguez MD at [facility] Right: Clavicle [employer] [id number] / / Screw Bone 3.5x16mm Variax 2 T10 Non Locking Fully Threaded Small - [id number] Implanted:Qty: 1 on 07/24/2023 by Hillary Rodriguez MD at [facility] Right: Clavicle [employer] [id number] / / Screw Bone 3.5x18mm Variax 2 T10 Non Locking Fully Threaded Small - [id number] Implanted:Qty: 1 on 07/24/2023 by Hillary Rodriguez MD at [facility] Right: Clavicle [employer] [id number] / / Screw Bone 3.5x16mm Variax 2 T10 Locking Fully Threaded Small - [id number] Implanted:Qty: 3 on 07/24/2023 by Hillary Rodriguez MD at [facility] Right: Clavicle [employer] [id number] / / Screw Bone 3.5x14mm Variax 2 T10 Non Locking Fully Threaded Small - [id number] Implanted:Qty: 1 on 07/24/2023 by Hillary Rodriguez MD at [facility] Right: Clavicle [employer] [id number] / / Screw Bone 3.5x22mm Variax 2 T10 Non Locking Fully Threaded Small - [id number] Implanted:Qty: 1 on 07/24/2023 by Hillary Rodriguez MD at [facility] Clavicle [employer] [id number] / / Clavicle Plate 122mm 8 Hole Shaft Variax Titanium Bridge Locking Decreased Curvature Superior Mid Rt Reprocessed - [id number] Implanted:Qty: 1 on 07/24/2023 by Hillary Rodriguez MD at [facility] Right: Clavicle [employer] [id number] / / Description:Transferred from one time implant Screw Bone 3.5x20mm Variax 2 T10 Locking Fully Threaded Small - [id number] Implanted:Qty: 1 on 03/01/2024 by Hillary Rodriguez MD at [facility] Right: Clavicle [employer] [id number] / / Screw Bone 3.5x22mm Variax 2 T10 Locking Fully Threaded Small - [id number] Implanted:Qty: 2 on 03/01/2024 by Hillary Rodriguez MD at [facility] Right: Clavicle [employer] [id number] / / Screw Bone 3.5x16mm Variax 2 T10 Non Locking Fully Threaded Small - [id number] Implanted:Qty: 2 on 03/01/2024 by Hillary Rodriguez MD at [facility] Right: Clavicle [employer] [id number] / / Screw Bone 3.5x18mm Variax 2 T10 Non Locking Fully Threaded Small - [id number] Implanted:Qty: 2 on 03/01/2024 by Hillary Rodriguez MD at [facility] Right: Clavicle [employer] [id number] / / Screw Bone 24x3.5mm Variax 2 T10 Non Locking Fully Threaded Small - [id number] Implanted:Qty: 1 on 03/01/2024 by Hillary Rodriguez MD at [facility] Right: Clavicle [employer] [id number] / / Screw Bone 3.5x20mm Variax 2 T10 Non Locking Fully Threaded Small - [id number] Implanted:Qty: 1 on 03/01/2024 by Hillary Rodriguez MD at [facility] Right: Clavicle [employer] [id number] / / Bone Plate 97mm 8 Hole Variax Titanium Anterior Midshaft - [id number] Implanted:Qty: 1 on 03/01/2024 by Hillary Rodriguez MD at [facility] Right: Clavicle [employer] [id number] / / Description:Transferred from one time implant Variax 2 Clavicle Plate 8 Hole Implanted:Qty: 1 on 03/01/2024 by Hillary Rodriguez MD at [facility] Right: Clavicle Screw Bone 3.5x14mm Variax 2 T10 Locking Fully Threaded Small - [id number] Implanted:Qty: 2 on 03/01/2024 by Hillary Rodriguez MD at [facility] Right: Clavicle [employer] [id number] / / Insurance MEDICARE A MEDICARE A UNITED R UNITED R UNITED R MEDICARE A R [facility] MEDICARE A MEDICARE A Care Teams Warp Splitter Relationship Specialty Start Date End Date Roseline Galarza MD PCP - General Internal Medicine 05/23/25 Additional Source Comments The information contained in this document represents components of the legal health record. It is not the complete legal health record.[facility]
--- OUTSIDE RECORDS SUMMARY | 2025-09-16 10:15 | XMS_ITS | Encounter Summary ---
Author Organization [facility] Address [address] [email or web address] [address] [place] [address] Phone Care Team Providers Care Internship Name Role Phone José Miguel Stevens MD Primary Care Provider Roseline Galarza MD Primary Care Provider Encounter Details Date Type Department Care Team (Late st Contact Info) Description 07/24/2023 Procedure Pass [facility] [address] [place] [address] Social History Tobacco Use Types Packs/Day Years [...] on filedocumented in this encounter Care Teams Internship Relationship Specialty Start Date End Date José Miguel Stevens MD [address] [place] [address] Dr LAGOS [address] [place] [address] PCP - General Internal Medicine 06/21/22 05/22/25 Roseline Galarza MD [address] [place] [address] Dr LAGOS [address] [place] [address] PCP - General Internal Medicine 05/23/25 documented as of this encounter Additional Source Comments The information contained in this document represents components of the legal health record. It is not the complete legal health record.[facility]
--- OUTSIDE RECORDS SUMMARY | 2025-09-16 10:15 | XMS_ITS | Encounter Summary ---
Author Organization [facility] Address [address] [facility] [address] [place] [address] Phone Care Team Providers Care Intern Retail Name Role Phone José Miguel Stevens MD Primary Care Provider [phone] Roseline Galarza MD Primary Care Provider Encounter Details Date Type Department Care Team (Late st Contact Info) Description 03/01/2024 Procedure Pass [facility]iology [address] [place] [address] Social History Tobacco Use Types Packs/Day Years [...] on filedocumented in this encounter Care Teams Intern Retail Relationship Specialty Start Date End Date José Miguel Stevens MD [address] [place] [address] [place] [address] PCP - General Internal Medicine 06/21/22 05/22/25 Roseline Galarza MD [address] [place] [address] [place] [address] PCP - General Internal Medicine 05/23/25 documented as of this encounter Additional Source Comments The information contained in this document represents components of the legal health record. It is not the complete legal health record.[facility]
--- OUTSIDE RECORDS SUMMARY | 2025-09-16 10:15 | XMS_ITS | Clinical Summary ---
Author Organization [facility] Address [address] [place] [address] Care Team Providers Care Silo Painter Name Role Phone Roseline Anaya MD Primary Care Provider [phone] Allergies Active Allergy Reactions Criticality Noted Date [...] Office Visit Gastroenterology - [address] [address] Claus Beasley MD Gastroesophageal reflux disease without [...] Procedure Name Priority Date/Time Associated Diagnosis Comments HEPATITIS C ANTIBODY Routine 11/23/2024 9:02 AM EST History of adenomatous polyp of colon Acid phosphatase elevated COLONOSCOPY Routine 10/04/2024 3:39 PM EST Colon cancer screening Family history of colonic polyps from Last 3 Months or Most Recently Relevant to Health Maintenance Results * Hepatitis C antibody (11/23/2024 9:02 AM EST) Hepatitis C Antibody Negative Negative LAB CHEMISTRY METHOD 11/23/2024 12:23 PM EST [facility] Blood Venous blood specimen / Unknown Venipuncture / Unknown 11/23/2024 9:02 AM EST 11/23/2024 10:45 AM EST us Claus Beasley MD LAB BLOOD ORDERABLES Final Result [facility] [address] [place] [address], * COLONOSCOPY Sedation; [facility] ENDOSCOPY (10/04/2024 3:39 PM EST) Anatomical Region Laterality Modality Endoscopy 10/04/2024 3:06 PM EST Narrative 10/04/2024 3:[address] [facility] Patient Name: Leisa Campbell Procedure Date: [...] for surveillance. Procedure Code(s): --- Professional --- 06421, Colonoscopy, flexible; with removal of tumor(s), polyp(s), or other lesion(s) by snare technique Diagnosis Code(s): --- Professional --- Z83.71, Family history of colonic polyps D12.0, Benign neoplasm of cecum D12.3, Benign neoplasm of transverse colon (hepatic flexure or splenic flexure) D12.4, Benign neoplasm of descending colon K57.30, Diverticulosis of large intestine without perforation or abscess without bleeding CPT copyright 2020 [employer]. All rights reserved. The codes documented in this report are preliminary and upon franchise consultant review may be revised to meet current compliance requirements. Claus Beasley MD Claus Beasley MD 10/04/2024 3:34:39 PM This report has been signed electronically.Claus Beasley MD Number of Addenda: 0 Note Initiated On: 10/04/2024 3:06 PM Scope In: Scope Out: Endoscopy Department at [facility] - [address] [place] [phone] Procedure Note Claus Beasley MD - 10/04/2024 [facility] Patient Name: Leisa Campbell Procedure Date: [...] for surveillance. Procedure Code(s): --- Professional --- 93219, Colonoscopy, flexible; with removal of tumor(s), polyp(s), or other lesion(s) by snare technique Diagnosis Code(s): --- Professional --- Z83.71, Family history of colonic polyps D12.0, Benign neoplasm of cecum D12.3, Benign neoplasm of transverse colon (hepatic flexure or splenic flexure) D12.4, Benign neoplasm of descending colon K57.30, Diverticulosis of large intestine without perforation or abscess without bleeding CPT copyright 2020 [employer]. All rights reserved. The codes documented in this report are preliminary and upon franchise consultant reviewmay be revised to meet current compliance requirements. Claus Beasley MD Claus Beasley MD 10/04/2024 3:34:39 PM This report has been signed electronically.Claus Beasley MD Number of Addenda: 0 Note Initiated On: 10/04/2024 3:06 PM Scope In: Scope Out: Endoscopy Department at [address] [phone] Claus Beasley MD GI~PROCEDURE ORDERABLES Fin al Result from Last 3 Months or Most Recently Relevant to Health Maintenance Insurance [facility] Care Teams Silo Painter Relationship Specialty Start Date End Date Roseline Anaya MD [address] [place] [address] PCP - General Internal Medicine 06/29/25
--- OUTSIDE RECORDS SUMMARY | 2025-09-16 10:15 | XMS_ITS | Encounter Summary ---
Author Organization [facility] Address [address] [facility] [address] [place] [address] Phone Care Team Providers Care Revenue Agent Name Role Phone José Miguel Stevens MD Primary Care Provider [phone] Roseline Galarza MD Primary Care Provider Encounter Details Date Type Department Care Team (Late st Contact Info) Description 01/23/2024 Procedure Pass [address] [address] Social History Tobacco Use Types Packs/Day Years [...] on filedocumented in this encounter Care Teams Revenue Agent Relationship Specialty Start Date End Date José Miguel Stevens MD [address] [place] [address] [place] [address] PCP - General Internal Medicine 06/21/22 05/22/25 Roseline Galarza MD [address] [place] [address] [place] [address] PCP - General Internal Medicine 05/23/25 documented as of this encounter Additional Source Comments The information contained in this document represents components of the legal health record. It is not the complete legal health record.[facility]
--- OUTSIDE RECORDS SUMMARY | 2025-09-16 10:16 | XMS_ITS | Encounter Summary ---
Author Organization [facility] Address [address] [facility] [address] [place] [address] Phone Care Team Providers Care Freight Coordinator Name Role Phone José Miguel Stevens MD Primary Care Provider Roseline Galarza MD Primary Care Provider Encounter Details Date Type Department Care Team (Late st Contact Info) Description 03/01/[address] [facility] Periop [address] [place] [address] Social History Tobacco Use Types Packs/Day Years [...] on filedocumented in this encounter Care Teams Freight Coordinator Relationship Specialty Start Date End Date José Miguel Stevens MD [address] [place] [address] [place] [address] PCP - General Internal Medicine 06/21/22 05/22/25 Roseline Galarza MD [address] [place] [address] [place] [address] PCP - General Internal Medicine 05/23/25 documented as of this encounter Additional Source Comments The information contained in this document represents components of the legal health record. It is not the complete legal health record.[facility]
== END 2025-09-16 09:47 | disposition home or self-care (01) ==
LOC: HO.HMCFM 09:24
PROVIDERS: PCP Internal Medicine; Visit Provider Internal Medicine
DX: K57.92 Diverticulitis of intestine, part unspecified, without perforation or abscess without bleeding (principal); K76.0 Fatty (change of) liver, not elsewhere classified; E78.5 Hyperlipidemia, unspecified